=== PATIENT | female | born 1995 | race Caucasian/White ===

== ENCOUNTER 2018-05-17 13:11 | Emergency (ER) | payer OTHER ==
[~2018-05-17 13:11] MED LIST: ISOVUE-370 76%-LOCM 1 ML ONE; Iopamidol 370 76% 50 ML VIAL FS ONE
[2018-05-17 13:45] LABS: #Basophils 0.1 thou/uL (0.0-0.2); #Eosinphils 0.1 thou/uL (0.0-0.7); #Lymphocytes 2.2 thou/uL (1.20-3.40); #Monocytes 0.4 thou/uL (0.11-0.59); #Neutrophils 4.8 thou/uL (1.40-6.50); %Basophils 0.7 % (0.0-1.0); %Eosinophils 0.9 % (0.0-10.0); %Lymphocytes 29.3 % (21.0-51.0); %Monocytes 5.8 % (0.0-10.0); %Neutrophils 63.3 % (42.0-75.0); Mean Corpuscular HGB CONC 32.7 g/dL (32.0-36.0); Mean Corpuscular Hemoglobin 29.8 pg (27.0-31.0); Mean Corpuscular Volume 91.1 fL (78.0-98.0); Mean Platelet Volume 6.8 fL (7.4-10.4); Platelet Count 278 thou/uL (130-400); RBC Distribution Width 11.4 % (11.5-14.5); Red Blood Cell (RBC) Count 5.04 mill/uL (4.20-5.40); White Blood Cell (WBC) Count 7.6 thou/uL (4.8-10.8)
[2018-05-17 14:04] LABS: ALT (SGPT) 11 U/L (8-55); AST (SGOT) 20 U/L (5-34); Albumin 4.9 g/dL (3.5-5.0); Alkaline Phosphatase 75 U/L (40-150); Anion Gap 12 mmol/L (10-20); BUN (Urea Nitrogen) 11 mg/dL (7.0-18.7); Bilirubin, Total 0.5 mg/dL (0.2-1.2); Calc. Creatinine Clearance 0 mL/min (70-130); Calcium 9.8 mg/dL (7.8-10.44); Carbon Dioxide 24 mmol/L (22-29); Chloride 106 mmol/L (98-107); Estimated GFR-MDRD 89; Globulin 2.8 g/dL (2.4-3.5); Glucose 95 mg/dL (70-105); Potassium 3.9 mmol/L (3.5-5.1); Protein, Total 7.7 g/dL (6.0-8.3); Sodium 138 mmol/L (136-145)
[2018-05-17 14:05] LABS: Bilirubin Negative (Negative); Blood, Urine Negative (Negative); Clarity CLOUDY (Clear); Glucose, Urine (Dipstick) Negative (Negative); Leukocyte Negative (Negative); Nitrite Negative (Negative); Protein, Urine (Dipstick) Negative (Neg-Trace); Specific Gravity, Urine 1.019 (1.002-1.036)
[2018-05-17 14:20] LABS: Pregnancy Test - Urine (BHCG) Negative (Negative); Pregu Control Background? CLEAR/WHITE (CLR/WHITE); Pregu Control Bar Appear? YES (CONTROL BAR); Specific Gravity 1.019 (1.002-1.036)
--- NOTE | 2018-05-17 16:21 | CT ---
CT ABDOMEN AND PELVIS WITH IV AND ORAL CONTRAST 05/17/18 HISTORY: Right lower quadrant pain. FINDINGS: Lung bases are clear. The liver, spleen, kidneys, adrenal glands, and pancreas have a normal CT appea omar. Urinary bladder is unremarkable. Appendix is not inflamed. Nonenlarged lymph nodes of the righ t lower quadrant mesentery. IMPRESSION: No significant abnormalities are demonstrated. POS: [facility]
== END 2018-05-17 16:36 | disposition home or self-care (01) ==
LOC: ERS 13:11
DX: R10.31 Right lower quadrant pain (principal)
CPT/HCPCS: 36415; 74177; 80053; 81003; 81025; 83690; 85025; Q9966; Q9967